=== PATIENT | female | born 2000 | race Two or more races ===

== ENCOUNTER 2020-01-27 12:38 | Emergency (ER) | payer OTHER ==
[~2020-01-27] VITALS: Ht 170.2 cm; Wt 90.9 kg
[2020-01-27] MEDS ORDERED: KETOROLAC TROMETHAMINE 60 MG/2 ML VIAL IM ONE (13:30)
[2020-01-27] MEDS ORDERED: METHOCARBAMOL 500 MG TABLET PO ONE (13:30)
[2020-01-27 13:47] VITALS: BP 131/72
== END 2020-01-27 14:08 | disposition home or self-care (01) ==
LOC: EMS 12:40
DX: M54.41 Lumbago with sciatica, right side (principal)
CPT/HCPCS: 96372; 99283; J1885

== ENCOUNTER 2020-01-28 08:02 | Emergency (ER) | payer OTHER ==
[~2020-01-28] VITALS: Ht 165.1 cm; Wt 95.5 kg
[2020-01-28] MEDS ORDERED: MORPHINE SULFATE 10 MG/ML SYRINGE IVP ONE ×2 (08:30→09:45)
[2020-01-28] MEDS ORDERED: KETOROLAC TROMETHAMINE 30 MG/ML VIAL IVP ONE (08:30)
[2020-01-28 10:41] VITALS: BP 114/64
== END 2020-01-28 10:47 | disposition home or self-care (01) ==
LOC: EMS 08:02
DX: M54.5 Low back pain (principal)
CPT/HCPCS: 96374; 96375; 96376; 99284; J1885; J2270

== ENCOUNTER 2022-10-27 01:07 | Emergency (ER) | payer OTHER ==
[~2022-10-27] VITALS: Ht 165.1 cm; Wt 95.5 kg
[2022-10-27 01:08] VITALS: TEMP 98.2
[2022-10-27] MEDS ORDERED: BACITRACIN 0.9 GM PACKET OINTMENT TP ONE (01:15)
[2022-10-27] MEDS ORDERED: PERTUSS(ACELL),DIPH,TET VAC/PF 0.5 ML SYRINGE IM. ONE (01:15)
[2022-10-27] MEDS ORDERED: ACETAMINOPHEN 500 MG TABLET PO ONE (01:15)
[2022-10-27] MEDS ORDERED: LIDOCAINE 1%/EPI 1:200,000/PF 30 ML VIAL SQ ONE (01:15)
[2022-10-27 02:18] VITALS: BP 141/73; PULSE 96; RESP 16
== END 2022-10-27 03:02 | disposition home or self-care (01) ==
LOC: EMS 01:08
DX: S71.112A Laceration without foreign body, left thigh, initial encounter (principal); W18.39XA Other fall on same level, initial encounter; Y93.89 Activity, other specified; Y92.89 Other specified places as the place of occurrence of the external cause; Y99.8 Other external cause status
CPT/HCPCS: 99283; 90715; 90471; 12002; J3490

== ENCOUNTER 2023-01-28 13:31 | Emergency (ER) | payer OTHER ==
[~2023-01-28] VITALS: Ht 157.5 cm; Wt 95.5 kg
[2023-01-28 13:39] VITALS: TEMP 98
[2023-01-28] MEDS ORDERED: ACETAMINOPHEN 500 MG TABLET PO ONE (15:00)
[2023-01-28] MEDS ORDERED: BACITRACIN 0.9 GM PACKET OINTMENT TP ONE (15:00)
[2023-01-28 16:23] VITALS: BP 142/82; PULSE 78; RESP 16
== END 2023-01-28 16:24 | disposition home or self-care (01) ==
LOC: EMS 13:41
DX: S00.03XA Contusion of scalp, initial encounter (principal); S09.90XA Unspecified injury of head, initial encounter; W19.XXXA Unspecified fall, initial encounter; Y93.89 Activity, other specified; Y92.89 Other specified places as the place of occurrence of the external cause; Y99.8 Other external cause status
CPT/HCPCS: 70450; 72125; 99284